=== PATIENT | male | born 1980 | race Caucasian/White ===

== ENCOUNTER 2017-03-26 09:20 | Outpatient (CLI) | payer OTHER ==
--- NOTE | 2017-03-26 13:49 | Diagnostic Imaging Report ---
[facility] [id number] [facility] [address] [id number] Report Submission Date: Mar 26, 2017 11:59:24 AM CDT Patient Study Name: ALIX GROVES Date: Mar 26, 2017 9:21:57 AM CDT Modality Type: CR Gender: M Description: CHEST : 84 Institution: [facility] Physician: [facility] Examination: PA and lateral chest. History: Positive TB test Findings: PA lateral chest demonstrate a normal cardiac and mediastinal silhouette. No focal infiltrate. No effusion. No blunting of the costophrenic margins. No apical parenchymal abnormalities. Osseous structures are appropriate for age. Impression: No acute process. No evidence for active tuberculosis by plain film sensitivity. Electronically signed on Mar 26, 2017 11:59:24 AM CDT by: Rafiq LAMAS
== END 2017-03-26 09:21 ==
LOC: RAD 09:20
PROVIDERS: ATTEND Family Medicine
DX: R76.11 Nonspecific reaction to tuberculin skin test without active tuberculosis (principal)
CPT/HCPCS: 71020